=== PATIENT | female | born 1950 | race Caucasian/White ===

== ENCOUNTER 2019-03-12 17:22 | Emergency (ER) | payer OTHER ==
[~2019-03-12] VITALS: Ht 149.9 cm; Wt 67.6 kg
[~2019-03-12 17:22] MED LIST: EST1 PO; GABA-531 PO; LEVO25TA7 PO; LOVA40TA75 PO; MORP30TA59 PO; TIZA4TAB11 PO
[2019-03-12 17:45] VITALS: BP_SYST 153
--- NOTE | 2019-03-12 18:05 | NUR ---
Patient advised me that she usually take Morphine 30mg PO at 1800, she asked if I could provide that to her in the waiting room. I advised her that I was not able to provide opiods with her having seen a doctor in an unmonitored area. Patient was upset.
--- NOTE | 2019-03-12 18:17 | NUR ---
Patient advised admitting that she was leaving.
== END 2019-03-12 18:17 | disposition left against medical advice (07) ==
LOC: SED 17:22
DX: M54.5 Low back pain (principal); Z53.21 Procedure and treatment not carried out due to patient leaving prior to being seen by health care provider

== ENCOUNTER 2023-09-01 06:28 | Day surgery (SDC) | payer OTHER ==
[~2023-09-01] VITALS: Ht 152.4 cm; Wt 54.4 kg
[~2023-09-01 06:28] MED LIST changes: -TIZA4TAB11 PO; +ZAN4 PO
[2023-09-01 07:22] VITALS: O2SAT 98
[2023-09-01] MEDS ORDERED: LIDOCAINE 2%, 20 ML MDV ONE (07:53)
[2023-09-01] MEDS ORDERED: NS 100 ML BAG ONE (07:53)
[2023-09-01] MEDS ORDERED: PROPOFOL 200MG/ 20ML VIAL (DIPRIVAN) IV ONE (07:53)
[2023-09-01] MEDS ORDERED: BENZOCAINE 20% 0.5mL UD SPRAY MM ONE (07:54)
[2023-09-01] MEDS ORDERED: SIMETHICONE 40 MG/0.6 ML ML ONE (07:54)
[2023-09-01 09:00] VITALS: BP_SYST 124; PULSE 80; RESP 17; TEMP 98
== END 2023-09-01 10:08 | disposition home or self-care (01) ==
LOC: SDS 06:28 → SMU 06:29 → SDS 10:08
PROVIDERS: ATTEND Internal Medicine
DX: D64.9 Anemia, unspecified (principal); K64.8 Other hemorrhoids; K29.50 Unspecified chronic gastritis without bleeding; K31.89 Other diseases of stomach and duodenum; R63.4 Abnormal weight loss; Z80.0 Family history of malignant neoplasm of digestive organs; Z90.710 Acquired absence of both cervix and uterus; Z98.890 Other specified postprocedural states; Z79.899 Other long term (current) drug therapy
CPT/HCPCS: 45378; 43239; 88305; 88312; 88313; G0378; J2001; J2704

== ENCOUNTER 2024-06-18 08:26 | Day surgery (SDC) | payer OTHER ==
[~2024-06-18] VITALS: Ht 152.4 cm; Wt 52.6 kg
[~2024-06-18 08:26] MED LIST changes: +CEFAZOLIN SOD 2 GM in D5W 50 ML IV ONE; +CELECOXIB 100 MG CAPSULE PO ONE; +oxyCODONE HCL 10 MG TAB.ER.12H PO ONE
[2024-06-18] MEDS ORDERED: ACETAMINOPHEN 500 MG TABLET ONE (08:51)
[2024-06-18] MEDS: CELECOXIB 100 MG CAPSULE ONE (09:15)
[2024-06-18] MEDS: ACETAMINOPHEN 500 MG TABLET PO ONE (09:15)
[2024-06-18] MEDS ORDERED: ceFAZolin SODIUM 1 GM VIAL ONE (10:20)
[2024-06-18] MEDS: oxyCODONE HCL 10 MG TAB.ER.12H PO ONE (10:20)
[2024-06-18] MEDS ORDERED: oxyCODONE HCL 5 MG TABLET PO PRN (11:00)
[2024-06-18] MEDS ORDERED: HYDROmorphone 1 MG/ML INJ. CARTRIDGE IVP PRN ×3 (11:00→11:30)
[2024-06-18] MEDS ORDERED: traMADol HCL HCL 50 MG TABLET (ULTRAM) PO PRN (11:00)
[2024-06-18] MEDS ORDERED: LORATADINE 10 MG TABLET PO PRN (11:00)
[2024-06-18] MEDS ORDERED: hydrALAZINE HCL 20 MG/ML VIAL IVP PRN (11:30)
[2024-06-18] MEDS ORDERED: LR 1,000 ML IV SCH (11:30)
[2024-06-18] MEDS ORDERED: LABETALOL 100 MG/ 20ML VIAL IVP PRN (11:30)
[2024-06-18] MEDS ORDERED: METOCLOPRAMIDE HCL 10 MG/2 ML VIAL IVP PRN ×2 (11:30→13:00)
[2024-06-18] MEDS ORDERED: MEPERIDINE HCL/PF 25 MG/ML DISP.SYRIN IVP PRN (11:30)
[2024-06-18] MEDS ORDERED: ONDANSETRON HCL 4 MG/2 ML VIAL IVP PRN (11:45)
[2024-06-18] MEDS ORDERED: LEVOTHYROXINE SODIUM 0.025 MG TABLET PO SCH (13:00)
[2024-06-18] MEDS ORDERED: LACTULOSE 20 GM/30 ML UDC PO PRN (13:00)
[2024-06-18] MEDS ORDERED: BISACODYL 10 MG/SUPPOSITORY RC PRN (13:00)
[2024-06-18] MEDS ORDERED: tiZANidine HCL 4 MG TABLET PO SCH (13:00)
[2024-06-18] MEDS ORDERED: DIPHENHYDRAMINE HCL 25 MG CAPSULE PO PRN (13:00)
[2024-06-18] MEDS ORDERED: LEVO125T8 PO (13:13)
[2024-06-18] MEDS ORDERED: GABA800T PO (13:13)
[2024-06-18] MEDS ORDERED: DULO60CA42 PO (13:13)
[2024-06-18] MEDS ORDERED: ZAN4 PO (13:13)
[2024-06-18] MEDS ORDERED: UBID1CAP54 PO (13:13)
[2024-06-18] MEDS ORDERED: NALO25TA4 PO ×3 (13:13→15:35)
[2024-06-18] MEDS ORDERED: HYDR-3927 PO (13:13)
[2024-06-18] MEDS ORDERED: MORP15TA60 PO (13:13)
[2024-06-18] MEDS: HYDROmorphone 1 MG/ML INJ. CARTRIDGE IVP PRN ×2 (13:20→13:31)
[2024-06-18] MEDS ORDERED: HYDROmorphone 1 MG/ML INJ. CARTRIDGE ONE ×2 (13:20→13:40)
[2024-06-18] MEDS: DIPHENHYDRAMINE INJ 50 MG/ML VIAL ONE (14:18)
[2024-06-18] MEDS: MORPHINE 2 MG/ML INJ. SYRINGE ONE ×2 (14:22→15:20)
[2024-06-18] MEDS: MORPHINE 2 MG/ML INJ. SYRINGE IVP PRN (14:38)
[2024-06-18] MEDS ORDERED: MORPHINE 2 MG/ML INJ. SYRINGE ONE ×3 (14:50→16:53)
[2024-06-18] MEDS ORDERED: DIPHENHYDRAMINE INJ 50 MG/ML VIAL IM ONE (15:00)
[2024-06-18] MEDS ORDERED: EST1 PO (15:35)
[2024-06-18] MEDS ORDERED: LOVA40TA75 PO (15:35)
[2024-06-18] MEDS ORDERED: NEU300 PO (15:35)
[2024-06-18 17:50] VITALS: BP_SYST 129; PULSE 96; RESP 16; TEMP 98
[2024-06-18] MEDS ORDERED: ATORVASTATIN 10 MG TABLET PO SCH (18:00)
[2024-06-18] MEDS: oxyCODONE HCL 5 MG TABLET PO PRN (18:21)
[2024-06-18 18:42] VITALS: O2SAT 99
[2024-06-18 19:00] VITALS: O2SAT 95
[2024-06-18 20:00] VITALS: BP_SYST 111; PULSE 94; RESP 20; TEMP 97.6; O2SAT 95
[2024-06-18] MEDS: SENNOSIDES/DOCUSATE SODIUM 1 TAB TABLET(SENOKOT-S) PO SCH (21:21)
[2024-06-18] MEDS: MORPHINE SULFATE 30 MG TABLET.SA PO SCH (21:22)
[2024-06-18] MEDS: ACETAMINOPHEN 500 MG TABLET PO SCH (21:24)
[2024-06-18] MEDS: GABAPENTIN 300 MG CAPSULE PO SCH (21:25)
[2024-06-19] VITALS: BP_SYST 121; PULSE 91; RESP 20; TEMP 97.7; O2SAT 94
[2024-06-19] MEDS: KETOROLAC TROMETHAMINE 10 MG TABLET (TORADOL) PO SCH (01:46)
[2024-06-19] MEDS: ceFAZolin SODIUM 2 GM in D5W 50 ML IV SCH (01:47)
[2024-06-19 08:17] VITALS: BP_SYST 123; PULSE 76; RESP 18; TEMP 98.3; O2SAT 97
[2024-06-19] MEDS: ASPIRIN 81 MG TAB.CHEW PO SCH (08:33)
[2024-06-19 10:32] VITALS: BP_SYST 118; PULSE 81; RESP 15; TEMP 97.8; O2SAT 97
[2024-06-19 10:34] VITALS: O2SAT 97
[2024-06-19] MEDS: CELECOXIB 200 MG CAPSULE PO SCH (11:03)
[2024-06-19 11:13] VITALS: BP_SYST 118; PULSE 81; RESP 15; TEMP 97.8; O2SAT 97
== END 2024-06-19 11:15 | disposition home or self-care (01) ==
LOC: SMU 08:26 → SDS 08:26 → SMU 17:44 → SDS 06-19 11:15
PROVIDERS: ATTEND Orthopaedic Surgery Sports Medicine
DX: M19.012 Primary osteoarthritis, left shoulder (principal); M25.512 Pain in left shoulder; E78.5 Hyperlipidemia, unspecified; E03.9 Hypothyroidism, unspecified; G89.29 Other chronic pain; Z90.710 Acquired absence of both cervix and uterus; Z98.1 Arthrodesis status; Z98.890 Other specified postprocedural states; Z79.890 Hormone replacement therapy; Z79.899 Other long term (current) drug therapy
CPT/HCPCS: 76000; 87081; 88304; 88311; 96379; C1776; J0690; J1100; J1170; J1200; J2270; J2274; J2405; J2704; J3490; J7050; J7060; J7120